=== PATIENT | male | born 1955 | race Caucasian/White ===

== ENCOUNTER 2018-09-30 17:17 | Emergency (ER) | payer OTHER ==
[~2018-09-30] VITALS: Ht 182.9 cm; Wt 87.1 kg
[~2018-09-30 17:17] MED LIST: FISH OIL 1,001000 M2 PO; IBUPROFEN 600600 M1 PO; IBUPROFEN 800800 M1 PO; MOBIC15 MG PO; NOHOMEMEDICATIONS; NORCO 5-325 TA1 EACH PO; PANTOPRAZOLE SO40 M1 PO; VALIUM2 MG PO
[2018-09-30] MEDS ORDERED: MOBIC7.5 MG PO (18:58)
[2018-09-30 19:16] VITALS: BP 142/80
== END 2018-09-30 20:12 | disposition home or self-care (01) ==
LOC: ER 17:17
DX: M25.562 Pain in left knee (principal); K21.9 Gastro-esophageal reflux disease without esophagitis; M19.042 Primary osteoarthritis, left hand; M19.041 Primary osteoarthritis, right hand; Z87.891 Personal history of nicotine dependence

== ENCOUNTER 2019-02-03 18:32 | Emergency (ER) | payer OTHER ==
[~2019-02-03] VITALS: Ht 182.9 cm; Wt 87.1 kg
[~2019-02-03 18:32] MED LIST changes: +MOBIC7.5 MG PO
[2019-02-03 19:57] LABS: ABSOLUTE NEUTROPHILS 5.3 thou/uL (1.4-8.2); BASOPHILS 1.5 % (0.0-2.0); EOSINOPHILS 0.9 % (0.0-3.0); HEMATOCRIT 46.9 % (42.0-52.0); HEMOGLOBIN 15.7 gm/dL (14.0-18.0); LYMPHOCYTES 24.9 % (24.0-44.0); MCH 30.6 pg (26.0-34.0); MCHC 33.5 g/dL (28.0-37.0); MCV 91.2 fL (80.0-100.0); PLATELET COUNT 208 thou/uL (150-400); POLYS 65.7 % (36.0-66.0); RBC 5.14 mil/uL (4.50-6.00); WBC 8.1 thou/uL (4.0-11.0)
[2019-02-03 20:15] LABS: CALCIUM 9.7 mg/dL (8.5-10.1); CREATININE 1.1 mg/dL (0.7-1.3); POTASSIUM 4.3 mmol/L (3.5-5.1)
[2019-02-03 20:20] LABS: ALBUMIN 4.1 g/dL (3.4-5.0); TOTAL BILIRUBIN 0.7 mg/dL (<0.1-1.0); TOTAL PROTEIN 7.7 g/dL (6.4-8.2)
[2019-02-03 23:34] VITALS: BP 130/72
--- NOTE | 2019-02-06 12:49 | HC ---
[facility] [place] [address] CONSULTATION Name: ALBA GARZA Room #: DEP [facility]#: [id number] Admission: 02/03/19 Attend Phys: Discharge: 02/03/19 Date of : 57 Report #: [id number] THIS REPORT FOR: //name// CC: Michael Wong DATE OF SERVICE: 02/03/2019 GI CONSULTATION HISTORY OF PRESENT ILLNESS: The patient is a 63-year-old male who I have been asked for further evaluation of food bolus obstruction and disimpaction. He has had these episodes over the course of the last several weeks, but has had dilation x 2 in the remote past. MEDICAL HISTORY: Notable for back surgery, urethral prostatectomy, prosthesis of the left eye, rotator cuff injury. MEDICATIONS: Include hydrocodone, pantoprazole. ALLERGIES: He is allergic to no medications. FAMILY AND SOCIAL HISTORY: Noncontributory. REVIEW OF SYSTEMS: Negative for weight loss, weakness, or fatigue. He denies head, eyes, ears, nose, or throat complaints. Denies chest pain, chest palpitation, chest pressure, cough, shortness of breath, wheezing, genitourinary, musculoskeletal, or neuropsychiatric complaints. PHYSICAL EXAMINATION: GENERAL: The patient is afebrile. VITAL SIGNS: Stable. HEENT: Nonicteric. NECK: Normal. LUNGS AND HEART: Not auscultated. ABDOMEN: Soft, nondistended, and nontender. PERTINENT LABORATORY DATA: Noted and normal. ASSESSMENT: In summary, the patient presents for food bolus disimpaction. We will proceed with upper endoscopy tonight and have further recommendations to follow. <ELECTRONICALLY SIGNED> By: Olegario Kang MD 02/06/19 1249 2215 1757 Osmel Farrell MD /nt
--- NOTE | 2019-02-06 12:49 | O ---
[facility] [place] [address] OPERATIVE REPORT Name: ALBA GARZA Room #: DEP [facility]#: [id number] Admission: 02/03/19 Attend Phys: Discharge: 02/03/19 Date of : 57 Report #: [id number] THIS REPORT FOR: //name// CC: Michael Wong DATE OF SERVICE: 02/03/2019 PREOPERATIVE DIAGNOSIS: Food bolus obstruction. POSTOPERATIVE DIAGNOSIS: See below. ANESTHESIA USED: See anesthesia notes. PROCEDURE PERFORMED: 1. Esophagogastroduodenoscopy, incomplete. 2. Food bolus disimpaction as described. 3. Gandhi dilation as described. INDICATION FOR PROCEDURE: As above: FINDINGS: 1. Food bolus obstruction, distal esophagus. 2. Esophageal stricture. 3. Successful Gandhi dilation. DESCRIPTION OF PROCEDURE: The risks and benefits of the procedure were explained in detail prior to monitored anesthesia. The patient was placed in left lateral decubitus position and the tip of the Olympus video endoscope was advanced into the esophagus where a food bolus was encountered. Using a Patten retrieval net, the food bolus was removed successfully. The GE junction was approximately 38 cm from the incisors and there was a significant narrowing in the distal esophagus consistent with peptic stricture. The stomach was intubated, but not inspected. The duodenum was not inspected. Biopsies were obtained from the midesophagus to exclude eosinophilic esophagitis. Next, using a standard Gandhi technique, a 48 and 50 Macanese Gandhi were utilized to dilate the stricture. The patient tolerated the procedure well and was discharged to recovery and eventually to home. ASSESSMENT: 1. Food bolus obstruction. 2. Peptic stricture. 3. Successful dilation. PLAN: 1. PPI daily. [facility] [address] [place] [address] OPERATIVE REPORT Name: ALBA GARZA Room #: DEP [facility]#: [id number] Admission: 02/03/19 Attend Phys: Discharge: 02/03/19 Date of : 57 Report #: [id number] 2. Repeat dilation in 2-3 weeks. 3. Repeat dilation at first hint of dysphagia to avoid food bolus obstruction in the future. <ELECTRONICALLY SIGNED> By: Olegario Kang MD 02/06/19 1249 2242 1917 Osmel Farrell MD /nt
--- NOTE | 2019-02-07 16:06 | PATH ---
[facility] [address] [place] [address] PATHOLOGY RPT PROCEDURE Name: ALBA KAMARA Room #: DEP [facility]#: [id number] Admission: 02/03/19 Date of : 57 Discharge: 02/03/19 Report #: [id number] Path Case #: [id number] [facility] Accession Number: [id number] . 01 Material submitted: . esophagus - BX MID ESOPHAGUS. Modifiers: mid . 01 Clinical history: . Food impaction, R/O eosinophilic esophagitis . 02 Diagnosis: Squamous mucosa, mid esophagus R/O eosinophilic esophagitis, endoscopic biopsy: - Mild esophagitis showing changes compatible with reflux esophagitis. - No increase in intraepithelial eosinophils. (IUV:enoch; 02/07/2019) QMS 02/07/2019 1447 Local . 02 Electronically signed: . Lisbet Taylor MD, Pathologist NPI- [id number] . 01 Gross description: . The specimen is received in formalin, labeled "Alba Kamara, biopsy mid esophagus, R/O EOE". Received are two segments of pale goodman soft tissue ranging in size from 0.5 to 0.6 cm in maximum dimensions. The specimen is submitted entirely in cassette A1. (CAA; 02/06/2019) QA/QA 02/06/2019 1338 Local . 02 Pathologist provided ICD-10: K21.0 . 02 CPT . 635535 Specimen Comment: A courtesy copy of this report has been sent to Specimen Comment: [phone], , . Specimen Comment: Report sent to ,DR MEDINA / DR VELASQUEZ Performed at: [address], [place] [id number] MD Jeremie Julian MD Phone: [phone] Performed at: [address] [id number] MD Lisbet aTylor MD Phone: [phone]
== END 2019-02-03 23:38 | disposition home or self-care (01) ==
LOC: ER 18:32
PROVIDERS: Emergency Medicine
DX: T18.120A Food in esophagus causing compression of trachea, initial encounter (principal); Z97.0 Presence of artificial eye; Z87.891 Personal history of nicotine dependence; X58.XXXA Exposure to other specified factors, initial encounter; Y93.9 Activity, unspecified; Y92.89 Other specified places as the place of occurrence of the external cause; Y99.8 Other external cause status
CPT/HCPCS: 62110; 62900